=== PATIENT | female | born 1960 | race Caucasian/White ===

== ENCOUNTER 2021-02-28 09:59 | Day surgery (SDC) | payer MEDICARE, MEDICAID ==
[2021-02-28] VITALS (17 sets, daily range): BP systolic 97–118; BP diastolic 50–89; PULSE 54–85; TEMP 97.8–98.7
[~2021-02-28] VITALS: Ht 190.5 cm; Wt 113.9 kg
[~2021-02-28 09:59] MED LIST: AMBIEN 5MG TABLE5 MG PO; ASPIRIN 81M81 MG/TA2 PO; CYMBALTA 60MG60 MG PO; DITROPAN XL10 MG PO; LOPRESSOR 550 MG/TAB PO; NEURONTIN300 MG/CAP PO; NITROSTAT0.4 MG/TAB SL; PRILOSEC 20MG20 MG PO; VITAMIN D32000 IU PO; ZYRTEC 10MG10 MG
[2021-02-28] MEDS ORDERED: TUMERIC (10:56)
[2021-02-28] MEDS ORDERED: PLAVIX 75MG TAB75 MG PO (11:09)
--- NOTE | 2021-02-28 11:20 | NUR ---
1030: DURING ASSESSMENT, WHEN PT. WAS ASKED ABOUT SUICIDE ASSESSMENT PT. STATED SHE HAD THOUGHTS ABOUT HARMING HERSELF, BUT NO PLAN. SHE INFORMED THIS RN THAT SHE HAS A THERAPIST WHO SHE TALKS TO ABOUT IT, WELL HER SPEECH THERAPIST KNOWS. PT. SEEMED VERY CONCERNED ABOUT ME ASKING THESE QUESTIONS. SHE STATED "I DON'T WANT TO ANSWER THAT. DO YOU HAVE TO TELL ANYONE". THIS RN INFORMED PT. THAT RN HAS TO ASSESS WHETHER PT. IS SAFE. RN ASKED PT. IF SHE HAD A PLAN OF HARMING HERSELF. PT. STATED SHE HAD NO PLAN, SHE JUST THINKS ABOUT IT ON OCCASSION. RN DOCUMENTED ON SUICIDE ASSESSMENT APPROPRIATELY. WILL CONTINUE TO MONITOR AND INFORM NECESSARY TEAM
[2021-02-28 11:37] LABS: MEAN CELL VOLUME 89 fl (80.0-100.0); MEAN CORPUSCULAR HEMOGLOBIN 27 pg (27.0-31.0); MEAN CORPUSCULAR HGB CONC 31 g/dl (33.0-37.0); MEAN PLATELET VOLUME 9.8 fl (7.4-10.4); PLATELET COUNT 265 K/mm3 (130-400); RED BLOOD COUNT 4.05 M/mm3 (4.10-5.30); REDCELL DISTRIBUTION WIDTH-CV 13.5 % (11.5-14.5)
[2021-02-28 11:43] LABS: HEMATOCRIT 35.9 % (37.0-47.0)
[2021-02-28 11:48] LABS: CALCIUM 9.1 mg/dL (8.4-10.2); CREATININE, serum 0.69 (0.52-1.25); POTASSIUM 4.6 mmol/L (3.4-5.0)
[2021-02-28 11:49] LABS: PROTHROMBIN TIME 10.5 SECONDS (9.7-12.8)
[2021-02-28 11:52] LABS: PARTIAL THROMBOPLASTIN TIME 29.6 SECONDS (26.0-37.0)
--- NOTE | 2021-02-28 12:40 | NUR ---
SEE MERGE DOCUMENTATION FOR MEDICATION ADMINISTRATION TIMES AND INTRA/POST PROCEDURE SEDATION ASSESSMENTS.
--- NOTE | 2021-02-28 14:00 | NUR ---
Pt transferred to express unit following heart cath. Bedside handoff conducted with KAUSHIK Emery. On handoff, right hand noted to be dusky in color. Pt states hand feels "numb". Band currently with 12cc air; this RN removing 2cc air at 1430. Hand color improving immediately. Pt also c/o pain to forearm. On assessment this is noted to be more firm than left arm. Site/arm also assessed by RT Tylor(R). These assessments relayed to Dr. Mcdaniel, who presents to room to assess at 1338. assisting EU staff to apply NANCY wrap to right forearm. Order recieved for Protamine Sulfate 5mg IV now; this order repeated back and verified with MD. Administered by this RN at 1341. Instructions to massage forearm under NANCY wrap and have pt pump fist/hand. Arm also elevated. Instructions to continue monitoring for signs of impaired/worsening perfusion. Report and handoff also completed to KAUSHIK Guajardo in Express Unit. MD returning at 1400 and assessing pt again.
--- NOTE | 2021-02-28 16:55 | NUR ---
First 2 ml of air removed from TR band. NANCY wrap placed by Dr Mcdaniel remains in place to rt arm. Pt encouraged to continue with fist pumping motion, and was provided with rolled nancy wrap to squeeze intermittently. This will also be sent home with her to continue exercises after discharge.
--- NOTE | 2021-02-28 17:40 | NUR ---
With pt's permission, pictures sent to JUAN Joyner with Dr. Mcdaniel to reevaluate edema to rt arm. Cap refill remains less than 2 seconds, sensation intact to hand, radial pulse strong.
--- NOTE | 2021-02-28 18:35 | NUR ---
Per instruction of RUBINA Frias, savage wrap reapplied to rt arm, with instruction to remove in the morning. Instruction given to remove tegaderm and nitro ointment to rt wrist in 6-8 hrs. Air was removed from TR band in 2 ml increments with no bleeding from radial punture site. Rt arm remains soft to palpation, and no specific areas of tenderness, but pt does state arm feels tender throughout forearm when palpated. INT DC'd with catheter intact. Pt is steady on feet. Assisted out to mother's car by wheelchair with all personal belongings.
== END 2021-02-28 16:30 | disposition home or self-care (01) ==
LOC: COL.CAR 09:59
PROVIDERS: Internal Medicine Interventional Cardiology
DX: I25.10 Atherosclerotic heart disease of native coronary artery without angina pectoris (principal); R94.39 Abnormal result of other cardiovascular function study; R00.2 Palpitations; R60.0 Localized edema; Z79.01 Long term (current) use of anticoagulants; Z79.82 Long term (current) use of aspirin; Z79.899 Other long term (current) drug therapy
CPT/HCPCS: C1769; J1644; J2250; J2720; J3010; Q9967